=== PATIENT | male | born 2000 | race Caucasian/White ===

== ENCOUNTER 2025-03-25 05:58 | Emergency (ER) | payer BC ==
[~2025-03-25] VITALS: Ht 182.9 cm; Wt 84.0 kg
[2025-03-25 06:26] VITALS: O2SAT 100
[2025-03-25] MEDS ORDERED: BELLADONNA ALK/PHENOBARB 16.2MG/5ML ORAL SYR PO ONE (06:45)
[2025-03-25] MEDS: FAMOTIDINE 20MG TABLET PO ONE (07:18)
[2025-03-25] MEDS: MAGNESIUM HYDROXIDE 400MG/5ML 30ML UDC PO ONE (07:18)
[2025-03-25 07:22] LABS: BASOPHILS % 0.9 % (0.0-2.0); EOSINOPHILS % 0.5 % (0.0-5.0); HEMATOCRIT. 43.7 % (42.0-52.0); HEMOGLOBIN. 14.6 g/dL (14.0-18.0); LYMPHOCYTES % 25.1 % (20.0-50.0); MEAN PLATELET VOLUME 7.6 fl (7.4-10.4); MONOCYTES % 5.8 % (2.0-8.0); NEUTROPHILS % 67.7 % (40.0-76.0); PLATELET 229 x1000/uL (130-400); RED BLOOD CELL COUNT 4.50 mill/uL (4.7-6.1); RED CELL DISTRIBUTION WIDTH 13.0 % (11.6-14.6)
[2025-03-25 07:29] LABS: TROPONIN I HIGH SENSITIVITY 41 ng/L (3.0-53)
[2025-03-25 07:44] LABS: CREATININE 0.9 mg/dL (0.6-1.3); UREA NITROGEN BLOOD 10 mg/dL (9-23)
[2025-03-25 10:07] LABS: TROPONIN I HIGH SENSITIVITY 39 ng/L (3.0-53)
[2025-03-25 10:21] VITALS: BP 116/64; PULSE 69; RESP 15; TEMP 36.7; O2SAT 100
== END 2025-03-25 10:24 | disposition home or self-care (01) ==
LOC: ER 05:58
DX: R07.89 Other chest pain (principal)
CPT/HCPCS: 36415; 71045; 80048; 84484; 85025; 85379; 93005; 99285